=== PATIENT | male | born 2000 | race Two or more races ===

== ENCOUNTER 2020-06-24 23:50 | Emergency (ER) | payer SELFPAY ==
[2020-06-25] MEDS ORDERED: ACETAMINOPHEN 325 MG TAB PO ONE (00:15)
[2020-06-25] MEDS ORDERED: NEOMYCIN-POLYM-GRAM OPTH(EYE) SOL 10ML ONE (00:15)
== END 2020-06-25 03:43 | disposition left against medical advice (07) ==
LOC: ER 06-25 03:38
DX: Z53.21 Procedure and treatment not carried out due to patient leaving prior to being seen by health care provider